=== PATIENT | female | born 1995 | race Caucasian/White ===

== ENCOUNTER → 2016-05-10 | Outpatient (REF) | payer BC, OTHER | LOC: M LAB REF 14:55 | PROVIDERS: ATTEND Physician Assistant | DX: N39.0 Urinary tract infection, site not specified (principal) ==

== ENCOUNTER → 2017-09-08 | Outpatient (REF) | payer OTHER | LOC: M LAB REF 16:33 | DX: J02.9 Acute pharyngitis, unspecified (principal) | CPT/HCPCS: 87077 ==

== ENCOUNTER → 2017-09-09 | Outpatient (REF) | payer OTHER | LOC: M LAB REF 17:29 | DX: J02.9 Acute pharyngitis, unspecified (principal) ==